=== PATIENT | female | born 1965 | race Caucasian/White ===

== ENCOUNTER 2018-01-20 22:33 | Emergency (ER) | payer OTHER ==
[~2018-01-20] VITALS: Ht 157.5 cm; Wt 101.2 kg
[2018-01-20 22:39] VITALS: BP 122/77
[2018-01-20] MEDS ORDERED: AMLODIPINE BESY10 MG (22:45)
[2018-01-20] MEDS ORDERED: LISINOPRIL5 MG (22:45)
[2018-01-20] MEDS ORDERED: PAXIL10 MG (22:45)
[2018-01-20] MEDS ORDERED: METFORMIN HCL500 MG (22:46)
[2018-01-20] MEDS ORDERED: CLEOCIN HCL300 MG PO (22:50)
== END 2018-01-20 23:03 | disposition home or self-care (01) ==
LOC: M.ERS 22:33
DX: L03.115 Cellulitis of right lower limb (principal); I10 Essential (primary) hypertension; Z88.5 Allergy status to narcotic agent; Z91.040 Latex allergy status; Z90.49 Acquired absence of other specified parts of digestive tract